=== PATIENT | male | born 1930 | race Caucasian/White ===

== ENCOUNTER → 2017-08-12 | Outpatient (CLI) | payer MEDICARE | END | disposition home or self-care (01) | LOC: RAD 07:36 | DX: R13.10 Dysphagia, unspecified (principal) | CPT/HCPCS: 74230; 92611 ==

== ENCOUNTER 2018-02-28 12:32 | Inpatient (IN) | payer MEDICARE ==
[2018-02-28 12:59] LABS: AADO2 Arterial 90.5 mmHg (7.0-24.0); Arterial Base Excess 3.8 mmol/L (-3.0-3); Arterial COHb 0.6 % (0.0-3.0); Arterial Fraction of Oxyhgb 91.3 % (93.0-99.0); Arterial MetHb 0.2 % (0.0-1.5); Arterial Total Hemglobin 11.1 g/dl (12.0-18.0); MODE NASAL CANNULA; Site LB
[2018-02-28 13:05] LABS: ADD MAN DIFF? NO
[2018-02-28] MEDS: METHYLPREDNISOLONE 125 MG INJ IV (13:05)
[2018-02-28] MEDS: SOD CHLORIDE 0.9% 500 ML IV (13:05)
[2018-02-28] MEDS: CEFEPIME 2GM/50 ML (PMX) 50 ML IVPB (13:05)
[2018-02-28 13:08] LABS: BASOPHILS % 0.3 % (0.0-2.0); EOSINOPHILS % 0.1 % (0.0-7.0); HEMOGLOBIN 10.4 g/dl (14.0-18.0); LYMPHOCYTES # 0.7 10^3/ul (0.8-2.9); LYMPHOCYTES % 4.6 % (15.0-51.0); MEAN CORPUSCULAR HEMOGLOBIN 31.5 pg (29.0-33.0); MEAN CORPUSCULAR HGB CONC 30.6 g/dl (32.0-37.0); MONOCYTE # 0.7 10^3/ul (0.3-0.9); MONOCYTES % 4.9 % (0.0-11.0); NEUTROPHIL # 12.8 10^3/ul (1.6-7.5); NEUTROPHILS % 89.3 % (39.0-77.0); PLATELET COUNT 163 10^3/UL (140-415); RED CELL DISTRIBUTION WIDTH 14.4 % (11.5-14.5)
[2018-02-28 13:08] LABS: WHITE BLOOD COUNT 14.3 10^3/ul (4.8-10.8)
[2018-02-28 13:22] LABS: PROTIME 14.4 Sec (11.9-14.9); PT RATIO 1.1
[2018-02-28 13:25] LABS: LACTIC ACID 1.4 mmol/L (0.5-2.0)
[2018-02-28 13:29] LABS: ALANINE AMINOTRANSFERASE 24 IU/L (13-69); ALBUMIN 3.2 g/dl (3.3-4.9); ALBUMIN/GLOBULIN RATIO 0.86; ALKALINE PHOSPHATASE 116 IU/L (42-121); ASPARTATE AMINO TRANSFERASE 35 IU/L (15-46); BILIRUBIN,INDIRECT 0.2 mg/dl (0-1.1); BILIRUBIN,TOTAL 0.2 mg/dl (0.2-1.3); BLOOD UREA NITROGEN 75 mg/dl (7-20); CALCIUM 9.2 mg/dl (8.4-10.2); CARBON DIOXIDE 32 mmol/L (21-31); CHLORIDE 111 mmol/L (97-110); CREATININE 1.61 mg/dl (0.61-1.24); GLUCOSE 373 mg/dl (70-220); POTASSIUM 5.4 mmol/L (3.5-5.1); TOTAL PROTEIN 6.9 g/dl (6.1-8.1)
[2018-02-28 13:35] LABS: ETHANOL < 10.0 mg/dl; SALICYLATE < 1.0 mg/dl (5.0-30.0)
[2018-02-28 13:35] LABS: B-TYPE NATRIURETIC PEPTIDE 9830 PG/ML (0-450)
[2018-02-28 13:37] LABS: ANION GAP 10 (8-16); SODIUM 148 mmol/L (135-144)
[2018-02-28] MEDS: VANCOMYCIN 1 GM (PMX) 250 ML IVPB (13:45)
[2018-02-28] MEDS: ALBUTEROL 0.083% (NEB) 2.5 MG/3 ML AMP INH (14:00)
[2018-02-28] MEDS ORDERED: MECLIZINE 12.5 MG TAB PO (14:00)
[2018-02-28] MEDS: IPRATROPIUM (NEB) 0.5 MG/2.5 ML AMP INH (14:00)
[2018-02-28] MEDS: SODIUM CHLORIDE 0.9% 1L BAG IV* (14:13)
[2018-02-28 15:49] LABS: AMPHETAMINE/METHAMPHETAMINE Negative (NEGATIVE); BARBITURATES Negative (NEGATIVE); BENZODIAZEPINES Negative (NEGATIVE); CANNABINOIDS Negative (NEGATIVE); COCAINE Negative (NEGATIVE); OPIATES Negative (NEGATIVE)
[2018-02-28] MEDS ORDERED: morphine 2 MG INJ IV (16:00)
[2018-02-28] MEDS ORDERED: ACETAMINOPHEN 325 MG TAB GTB (16:00)
[2018-02-28] MEDS ORDERED: NACL 0.9% 3 ML SYG IV (16:00)
[2018-02-28] MEDS ORDERED: GLUCOSE GEL 15 GRAM TUBE PO ×2 (16:30)
[2018-02-28] MEDS ORDERED: ACETYLCYSTEINE 20% 4 ML VIAL NEB (16:30)
[2018-02-28] MEDS ORDERED: GLUCOSE GEL 15 GRAM TUBE BUCCAL (16:30)
[2018-02-28] MEDS ORDERED: DEXTROSE 50% 50 ML SYRINGE IV ×2 (16:30)
[2018-02-28] MEDS ORDERED: GLUCAGON 1 MG INJ IM (16:30)
[2018-02-28] MEDS: CARBOXYMETHYLCELLULOSE 0.5% 0.4 ML OPH BOTH EYES ×2 (18:11→21:00)
[2018-02-28] MEDS: INSULIN ASPART [NOVOLOG] 3 ML PEN SC (18:12)
[2018-02-28] MEDS: ACETYLCYSTEINE 20% 4 ML VIAL NEB (20:00)
[2018-02-28] MEDS: INSULIN GLARGINE [LANTus] (100 UNITS/ML) SYG SC (22:10)
[2018-02-28] MEDS: ATORVASTATIN 80 MG TAB GTB (23:18)
[2018-02-28] MEDS: LACTULOSE 30ML CUP GTB (23:18)
[2018-03-01] MEDS: ACCU-CHEK XX ×7 (01:00→21:29)
[2018-03-01] MEDS ORDERED: INSULIN ASPART [NOVOLOG] 3 ML PEN SC ×2 (01:00→17:00)
[2018-03-01] MEDS: Insulin NOVOLOG SS MILD Algorithm (NPO/TPN/ENTERAL FEEDS) SC ×6 (01:16→21:11)
[2018-03-01 01:26] LABS: LACTIC ACID 2.9 mmol/L (0.5-2.0)
[2018-03-01] MEDS: ACETYLCYSTEINE 20% 4 ML VIAL NEB ×4 (02:56→21:24)
[2018-03-01] MEDS: ALBUTEROL 0.083% (NEB) 2.5 MG/3 ML AMP NEB ×4 (02:57→21:28)
[2018-03-01] MEDS: SOD CHLORIDE 0.9% 1,000 ML IV (03:06)
[2018-03-01] MEDS: ALBUMIN HUMAN 25% 100 ML IV ×2 (03:08→05:10)
[2018-03-01 05:08] LABS: WHITE BLOOD COUNT 10.8 10^3/ul (4.8-10.8)
[2018-03-01 05:08] LABS: ABNORMAL IP MESSAGE 1; ADD MAN DIFF? NO; BASOPHILS % 0.1 % (0.0-2.0); HEMATOCRIT 29.7 % (42.0-52.0); HEMOGLOBIN 8.9 g/dl (14.0-18.0); LYMPHOCYTES # 0.6 10^3/ul (0.8-2.9); LYMPHOCYTES % 5.5 % (15.0-51.0); MEAN CORPUSCULAR HEMOGLOBIN 30.9 pg (29.0-33.0); MEAN CORPUSCULAR VOLUME 103.1 fl (82.0-101.0); MEAN PLATELET VOLUME 13.1 fl (7.4-10.4); MONOCYTE # 0.2 10^3/ul (0.3-0.9); MONOCYTES % 1.8 % (0.0-11.0); NEUTROPHIL # 9.9 10^3/ul (1.6-7.5); NEUTROPHILS % 91.9 % (39.0-77.0); PLATELET COUNT 134 10^3/UL (140-415); POSITIVE DIFF @See below; RED BLOOD COUNT 2.88 10^6/ul (4.70-6.10); RED CELL DISTRIBUTION WIDTH 14.2 % (11.5-14.5)
[2018-03-01 05:41] LABS: ALANINE AMINOTRANSFERASE 32 IU/L (13-69); ALBUMIN 2.5 g/dl (3.3-4.9); ALBUMIN/GLOBULIN RATIO 0.67; ALKALINE PHOSPHATASE 92 IU/L (42-121); ANION GAP 13 (8-16); ASPARTATE AMINO TRANSFERASE 48 IU/L (15-46); BILIRUBIN,INDIRECT 0.2 mg/dl (0-1.1); BILIRUBIN,TOTAL 0.2 mg/dl (0.2-1.3); BLOOD UREA NITROGEN 75 mg/dl (7-20); CALCIUM 9.1 mg/dl (8.4-10.2); CARBON DIOXIDE 28 mmol/L (21-31); CHLORIDE 116 mmol/L (97-110); CREATININE 1.44 mg/dl (0.61-1.24); GLUCOSE 272 mg/dl (70-220); MAGNESIUM 2.7 mg/dl (1.7-2.5); PHOSPHORUS 3.3 mg/dl (2.5-4.9); POTASSIUM 4.6 mmol/L (3.5-5.1); SODIUM 152 mmol/L (135-144); TOTAL PROTEIN 6.2 g/dl (6.1-8.1)
[2018-03-01 06:06] LABS: HEMOGLOBIN A1C 7.4 % (0-5.9)
[2018-03-01 06:07] LABS: THYROID STIMULATING HORMONE 0.499 MIU/L (0.465-4.680)
[2018-03-01 08:42] LABS: LACTIC ACID 1.8 mmol/L (0.5-2.0)
[2018-03-01] MEDS: LACTULOSE 30ML CUP GTB ×2 (08:57→20:58)
[2018-03-01] MEDS: LEVOFLOXACIN 750MG/D5W (PMX) 150 ML IVPB (10:29)
[2018-03-01] MEDS: CARBOXYMETHYLCELLULOSE 0.5% 0.4 ML OPH BOTH EYES ×4 (10:29→21:15)
[2018-03-01] MEDS: SOD CHLORIDE 0.45% 1,000 ML IV (13:23)
[2018-03-01] MEDS: FUROSEMIDE 20 MG INJ IV (13:24)
[2018-03-01] MEDS ORDERED: DEXTROSE 5% 1,000 ML IV (13:30)
[2018-03-01] MEDS: IPRATROPIUM (NEB) 0.5 MG/2.5 ML AMP HHN ×2 (13:46→21:28)
[2018-03-01] MEDS ORDERED: VANCOMYCIN IV PER PHARMACY XX (14:00)
[2018-03-01] MEDS: VANCOMYCIN 1 GM 250 ML IVPB (15:24)
[2018-03-01] MEDS: ATORVASTATIN 80 MG TAB GTB (21:06)
[2018-03-01] MEDS: INSULIN GLARGINE [LANTus] (100 UNITS/ML) SYG SC (21:11)
[2018-03-02] MEDS: Insulin NOVOLOG SS MILD Algorithm (NPO/TPN/ENTERAL FEEDS) SC ×4 (01:25→13:27)
[2018-03-02] MEDS: ACCU-CHEK XX ×5 (01:29→13:08)
[2018-03-02] MEDS: ACETYLCYSTEINE 20% 4 ML VIAL NEB ×3 (01:43→14:09)
[2018-03-02] MEDS: IPRATROPIUM (NEB) 0.5 MG/2.5 ML AMP HHN ×3 (01:52→14:08)
[2018-03-02] MEDS ORDERED: ACCU-CHEK XX (02:00)
[2018-03-02] MEDS: ALBUTEROL 0.083% (NEB) 2.5 MG/3 ML AMP NEB ×2 (02:03→08:57)
[2018-03-02] MEDS: SOD CHLORIDE 0.45% 1,000 ML IV (02:42)
[2018-03-02 05:36] LABS: ADD MAN DIFF? NO
[2018-03-02 05:46] LABS: WHITE BLOOD COUNT 13.6 10^3/ul (4.8-10.8)
[2018-03-02 05:46] LABS: ABNORMAL IP MESSAGE 1; BASOPHILS % 0.1 % (0.0-2.0); HEMATOCRIT 32.5 % (42.0-52.0); HEMOGLOBIN 9.9 g/dl (14.0-18.0); LYMPHOCYTES # 0.7 10^3/ul (0.8-2.9); LYMPHOCYTES % 4.8 % (15.0-51.0); MEAN CORPUSCULAR HEMOGLOBIN 31.2 pg (29.0-33.0); MEAN CORPUSCULAR HGB CONC 30.5 g/dl (32.0-37.0); MEAN CORPUSCULAR VOLUME 102.5 fl (82.0-101.0); MEAN PLATELET VOLUME 13.2 fl (7.4-10.4); MONOCYTE # 0.8 10^3/ul (0.3-0.9); MONOCYTES % 5.7 % (0.0-11.0); NEUTROPHIL # 12.1 10^3/ul (1.6-7.5); NEUTROPHILS % 88.6 % (39.0-77.0); PLATELET COUNT 108 10^3/UL (140-415); POSITIVE DIFF @See below; RED BLOOD COUNT 3.17 10^6/ul (4.70-6.10); RED CELL DISTRIBUTION WIDTH 14.3 % (11.5-14.5)
[2018-03-02 06:03] LABS: MAGNESIUM 2.5 mg/dl (1.7-2.5)
[2018-03-02 06:03] LABS: PHOSPHORUS 2.9 mg/dl (2.5-4.9)
[2018-03-02 06:18] LABS: ANION GAP 12 (8-16); BLOOD UREA NITROGEN 70 mg/dl (7-20); CALCIUM 8.9 mg/dl (8.4-10.2); CARBON DIOXIDE 29 mmol/L (21-31); CHLORIDE 116 mmol/L (97-110); CREATININE 1.29 mg/dl (0.61-1.24); GLUCOSE 174 mg/dl (70-220); SODIUM 153 mmol/L (135-144)
[2018-03-02] MEDS: BALSAM PERU/CASTOR OIL 60 GM TUBE TOP (09:00)
[2018-03-02] MEDS: COLLAGENASE 5 GM (UD JAR) TOP (09:06)
[2018-03-02] MEDS: LACTULOSE 30ML CUP GTB (09:06)
[2018-03-02] MEDS: CARBOXYMETHYLCELLULOSE 0.5% 0.4 ML OPH BOTH EYES ×2 (09:06→13:13)
[2018-03-02] MEDS: DEXTROSE 5% 1,000 ML IV (09:54)
[2018-03-02] MEDS: AZTREONAM 1 GM/NS (PMX) 50 ML IVPB (11:08)
[2018-03-02] MEDS: VANCOMYCIN 1 GM 250 ML IVPB (13:13)
[2018-03-02] MEDS ORDERED: ALBUTEROL 0.083% (NEB) 2.5 MG/3 ML AMP NEB (14:00)
== END 2018-03-02 17:16 | DRG 871 ==
LOC: E/R 12:32 → 6WM 13:47
DX: A41.9 Sepsis, unspecified organism (principal); J69.0 Pneumonitis due to inhalation of food and vomit; J96.01 Acute respiratory failure with hypoxia; J96.02 Acute respiratory failure with hypercapnia; G93.41 Metabolic encephalopathy; E44.0 Moderate protein-calorie malnutrition; E87.0 Hyperosmolality and hypernatremia; I25.10 Atherosclerotic heart disease of native coronary artery without angina pectoris; I10 Essential (primary) hypertension; E11.9 Type 2 diabetes mellitus without complications; J44.9 Chronic obstructive pulmonary disease, unspecified; Z86.73 Personal history of transient ischemic attack (TIA), and cerebral infarction without residual deficits; E78.5 Hyperlipidemia, unspecified; I95.9 Hypotension, unspecified; Z66 Do not resuscitate; Z68.25 Body mass index [BMI] 25.0-25.9, adult
CPT/HCPCS: 36415; 36600; 70450; 71045; 80048; 80053; 80307; 82803; 82962; 83036; 83605; 83735; 83880; 84100; 84443; 84484; 85025; 85610; 87040; 87070; 87086; 89220; 93005; 94640; 94664; 96374; 96375; 99291-25